=== PATIENT | female | born 1995 | race Caucasian/White ===

== ENCOUNTER 2016-10-03 22:53 | Emergency (ER) | payer OTHER ==
[~2016-10-03] VITALS: Ht 152.4 cm; Wt 94.1 kg
[2016-10-03 22:54] VITALS: TEMP 98.6
[2016-10-03] MEDS ORDERED: LEXAPRO20 MG PO (22:54)
[2016-10-03 23:29] LABS: BASO # 0.1 (0.0-0.2); BASO % 0.6 % (0.0-2.0); EOS # 0.3 (0.0-0.7); EOS % 2.5 % (0-4.0); GRAN # 6.1 (1.4-6.5); GRAN % 58.1 % (42.2-75.2); LYMPH # 3.2 (1.2-3.4); MEAN CELL VOLUME 79 fl (80.0-100.0); MEAN CORPUSCULAR HGB CONC 31 g/dl (33.0-37.0); MEAN PLATELET VOLUME 11.3 fl (7.4-10.4); MONO # 0.8 (0.1-0.6); MONO % 7.5 % (1.7-9.3); PLATELET COUNT 244 K/mm3 (130-400); RED BLOOD COUNT 4.35 M/mm3 (4.10-5.30); REDCELL DISTRIBUTION WIDTH-CV 14.7 % (11.5-14.5); WHITE BLOOD COUNT 10.5 K/mm3 (4.8-10.8)
[2016-10-03 23:30] LABS: HEMATOCRIT 34.5 % (37.0-47.0); HEMOGLOBIN 10.8 g/dl (12.5-16.0); MEAN CORPUSCULAR HEMOGLOBIN 25 pg (27.0-31.0)
[2016-10-03] MEDS ORDERED: ORTHO TRI-CYCLE1 TAB PO (23:49)
[2016-10-04 00:15] VITALS: BP 128/74; PULSE 76
== END 2016-10-04 00:18 | disposition home or self-care (01) ==
LOC: COL.ER 22:53
PROVIDERS: Emergency Medicine
DX: N93.8 Other specified abnormal uterine and vaginal bleeding (principal); D64.9 Anemia, unspecified

== ENCOUNTER 2016-10-13 22:58 | Emergency (ER) | payer OTHER ==
[~2016-10-13] VITALS: Ht 152.4 cm; Wt 94.1 kg
[~2016-10-13 22:58] MED LIST: LEXAPRO20 MG PO; ORTHO TRI-CYCLE1 TAB PO
[2016-10-13 23:00] VITALS: TEMP 97.5
[2016-10-13 23:48] LABS: PH 5 (5-8); URINE APPEARANCE Hazy; URINE BACTERIA Rare /hpf; URINE BILIRUBIN Negative (NEGATIVE); URINE BLOOD Negative (NEGATIVE); URINE COLOR Yellow; URINE GLUCOSE Negative (NEGATIVE); URINE KETONE Negative (NEGATIVE); URINE UROBILINOGEN Negative (NEGATIVE); URINE WBC 20-50 /hpf
[2016-10-14] MEDS ORDERED: BACTRIM DS 8001 TAB PO (00:05)
[2016-10-14] MEDS ORDERED: PROAIR HFA0.09 MG/AC IH (00:09)
[2016-10-14 00:31] VITALS: BP 120/70; PULSE 65
== END 2016-10-14 00:33 | disposition home or self-care (01) ==
LOC: COL.ER 22:58
PROVIDERS: Nurse Practitioner
DX: N39.0 Urinary tract infection, site not specified (principal); R06.2 Wheezing; F17.210 Nicotine dependence, cigarettes, uncomplicated
CPT/HCPCS: J2360

== ENCOUNTER 2016-10-25 17:53 | Emergency (ER) | payer OTHER ==
[~2016-10-25] VITALS: Ht 152.4 cm; Wt 94.1 kg
[~2016-10-25 17:53] MED LIST changes: +BACTRIM DS 8001 TAB PO; +PROAIR HFA0.09 MG/AC IH
[2016-10-25 18:00] VITALS: BP 117/89; TEMP 98.3
[2016-10-25] MEDS ORDERED: FERROUS SULFATE65 MG PO (18:03)
[2016-10-25 19:53] VITALS: PULSE 88
== END 2016-10-25 19:53 | disposition home or self-care (01) ==
LOC: COL.ER 17:53
DX: M54.5 Low back pain (principal); R06.2 Wheezing
CPT/HCPCS: J1885; J2360

== ENCOUNTER 2016-10-29 20:49 | Emergency (ER) | payer OTHER ==
[~2016-10-29] VITALS: Ht 152.4 cm; Wt 93.6 kg
[~2016-10-29 20:49] MED LIST changes: +FERROUS SULFATE65 MG PO
[2016-10-29 20:51] VITALS: BP 110/74; TEMP 97
[2016-10-29] MEDS ORDERED: WELLBUTRIN 75MG75 MG PO (20:53)
[2016-10-29 21:17] LABS: BASO % 0.5 % (0.0-2.0); GRAN # 3.5 (1.4-6.5); GRAN % 62.6 % (42.2-75.2); HEMATOCRIT 38.8 % (37.0-47.0); HEMOGLOBIN 12.3 g/dl (12.5-16.0); LYMPH # 1.7 (1.2-3.4); MEAN CELL VOLUME 82 fl (80.0-100.0); MEAN CORPUSCULAR HEMOGLOBIN 26 pg (27.0-31.0); MEAN CORPUSCULAR HGB CONC 32 g/dl (33.0-37.0); MEAN PLATELET VOLUME 10.9 fl (7.4-10.4); MONO # 0.4 (0.1-0.6); MONO % 6.7 % (1.7-9.3); PLATELET COUNT 254 K/mm3 (130-400); RED BLOOD COUNT 4.74 M/mm3 (4.10-5.30); REDCELL DISTRIBUTION WIDTH-CV 17.2 % (11.5-14.5); WHITE BLOOD COUNT 5.6 K/mm3 (4.8-10.8)
[2016-10-29 21:36] LABS: INFLUENZA B NEGATIVE
[2016-10-29] MEDS ORDERED: PREDNISONE20 MG PO (21:43)
[2016-10-29 22:00] VITALS: PULSE 98
== END 2016-10-29 22:03 | disposition home or self-care (01) ==
LOC: COL.ER 20:49
PROVIDERS: Family Medicine
DX: J20.9 Acute bronchitis, unspecified (principal)
CPT/HCPCS: J7512